=== PATIENT | male | born 1980 | race American Indian/Alaskan Native ===

== ENCOUNTER 2016-10-17 08:17 | Emergency (ER) | payer MEDICARE ==
--- NOTE | 2016-10-17 10:16 | Emergency Department Report ---
HPI - General Chief Complaint: Hypoglycemia Time Seen by Provider: 10/17/16 09:45 - HPI HPI: This is a 35-year-old Afro[place] male who presents to the emergency department via EMS from home after having a bout of hypoglycemia. The patient was acting abnormal when he woke up this morning so his called EMS and he was found to have a blood sugar of 31. He was given some oral glucose and EMS rechecked his blood sugar and it was 110. He was given some food to eat upon arrival here and he has become AAO 3 and currently has no complaints. He is end-stage renal disease on hemodialysis on Thursday, Thursday and Thursday and says that they have already spoken to nephrology and he will be able to get a dialysis appointment later today. He denies any headache, chest pain, shortness breath, fever. He has history of insulin dependent diabetes, hypertension, end-stage renal disease, coronary artery disease with stent and has a fistula to the left upper extremity. ED Past Medical Hx - Past Medical History Previous Medical History?: Yes Hx Hypertension: Yes Hx Diabetes: Yes Hx Renal Disease: Yes - Surgical History Past Surgical History?: Yes Hx Coronary Stent: Yes Additional Surgical History: Fistula to L arm - Social History Smoking Status: Never Smoker Substance Use Type: Marijuana ED Review of Systems ROS: Stated complaint: LOW BLOOD SUGAR Other details as noted in HPI Comment: All other systems reviewed and negative Constitutional: denies: chills, fever Eyes: denies: eye pain, eye discharge, vision change ENT: denies: ear pain, throat pain Respiratory: denies: cough, shortness of breath, wheezing Cardiovascular: denies: chest pain, palpitations Gastrointestinal: denies: abdominal pain, nausea, diarrhea Genitourinary: denies: urgency, dysuria Musculoskeletal: denies: back pain, joint swelling, arthralgia Skin: denies: rash, lesions Neurological: confusion. denies: headache Physical Exam - Physical Exam Vital Signs: Vital Signs 10/17/16 08:42 Temperature 98.4 F Pulse Rate 85 Respiratory 16 Rate Blood Pressure 179/90 O2 Sat by Pulse 100 Oximetry Physical Exam: GENERAL: The patient is well-developed well-nourished. HEENT: Normocephalic. Atraumatic. Extraocular motions are intact. Patient has moist mucous membranes. Pupils equal reactive to light bilaterally. NECK: Supple. Trachea is midline. CHEST/LUNGS: Clear to auscultation. There is no respiratory distress noted. HEART/CARDIOVASCULAR: Regular. There is no tachycardia. There is no gallop rub or murmur. ABDOMEN: Abdomen is soft, nontender. Patient has normal bowel sounds. There is no abdominal distention. Obese habitus. SKIN: There is no rash. There is no edema. There is no diaphoresis. NEURO: The patient is awake, alert, and oriented. The patient is cooperative. The patient has no focal neurologic deficits. The patient has normal speech. Cranial nerves II through XII grossly intact. MUSCULOSKELETAL: There is no tenderness or deformity. There is no limitation range of motion. There is no evidence of acute injury. ED Course Vital Signs 10/17/16 08:42 Temperature 98.4 F Pulse Rate 85 Respiratory 16 Rate Blood Pressure 179/90 O2 Sat by Pulse 100 Oximetry ED Medical Decision Making - Medical Decision Making This is a 35-year-old male who presents the emergency department after having a unresponsive hypoglycemic episode. The patient took his normal insulin last night and then woke up altered and was found to have a blood sugar of about 30. After he got some oral glucose he went back to his baseline, AAO 3, and without any deficits. Since being in the emergency department the patient is awake, alert and has no complaints. He was given some food to eat and his blood sugar was rechecked about one hour later and is at 168. The patient is end-stage renal disease on hemodialysis and has been set up to get dialysis later today since he missed his 5 AM appointment. Originally I had the plan to check a CBC and BNP on this patient. However I was able to get a estimation of his blood sugar from the [employer]. If the patient has some level of hyperkalemia, he is due for dialysis anyways and has an appointment set up for a few hours from now. For all these reasons, the patient has decided he does not want any blood work done. However this appears reasonable and he appears stable and therefore I will not make him sign out AGAINST MEDICAL ADVICE and he will be discharged regularly. His vitals are otherwise stable including being afebrile. Patient does have some hypertension but he is getting dialysis and often does not take his blood pressure medications until after dialysis as dialysis will drop him down and he does not become hypotensive. He appears safe for discharge home at this time but has been encouraged to return to the emergency department with any return of his symptoms or any acute distress. - Differential Diagnosis diabetic hypoglycemia, hypothyroidism, [place], CVA Critical Care Time: No Critical care attestation.: If time is entered above; I have spent that time in minutes in the direct care of this critically ill patient, excluding procedure time. ED Disposition Clinical Impression: Hypoglycemia Hypertension Qualifiers: Hypertension type: essential hypertension Qualified Code(s): I10 - Essential ( primary) hypertension Disposition: DISCHARGED TO HOME OR SELFCARE Is pt being admited?: No Condition: Stable Instructions: Diabetic Hypoglycemia (ED), Hypertension (ED) Additional Instructions: Please make sure to follow up with your primary care doctor and to go to your dialysis appointment today. Return to the emergency department with any return of your symptoms or any acute distress. Try to stay away from foods that are high in salt and caffeinated products, and go home to take your blood pressure medications. Referrals: PRIMARY CARE, [Primary Care Provider] - [facility] Time of Disposition: 10:18
[2016-10-17 10:49] VITALS: BP 151/88
== END 2016-10-17 10:53 | disposition home or self-care (01) ==
LOC: ED 08:17
DX: E11.649 Type 2 diabetes mellitus with hypoglycemia without coma (principal); F12.10 Cannabis abuse, uncomplicated; I12.0 Hypertensive chronic kidney disease with stage 5 chronic kidney disease or end stage renal disease; E11.22 Type 2 diabetes mellitus with diabetic chronic kidney disease; N18.6 End stage renal disease; Z99.2 Dependence on renal dialysis; Z79.4 Long term (current) use of insulin
CPT/HCPCS: 82962; 99283